=== PATIENT | female | born 1980 | race Hispanic/Latino ===

== ENCOUNTER 2017-01-06 20:58 | Emergency (ER) | payer BC, OTHER ==
[2017-01-06 20:58] VITALS: BMI 25.3
[2017-01-06 21:32] VITALS: BP 133/89; PULSE 64; RESP 18; TEMP 98.2; O2SAT 100
--- NOTE | 2017-01-06 21:54 | C.PDOC ---
History Of Present Illness 36 y/o female presents to ED unable to find string on tampon placed at 230 pm today to remove it. pt denies abdominal pain, denies urinary symptoms. Time Seen by Provider: 01/06/17 21:35 Chief Complaint (Nursing): Female Genitourinary History Per: Patient Onset/Duration Of Symptoms: Hrs (9) Current Symptoms Are (Timing): Still Present Severity: None Pain Scale Rating Of: 0 Abnormal Vaginal Bleeding: No Past Medical History Reviewed: Historical Data, Nursing Documentation, Vital Signs Vital Signs: Last Vital Signs Temp 98.2 F 01/06/17 21:25 Pulse 64 01/06/17 21:25 Resp 18 01/06/17 21:25 BP 133/89 01/06/17 21:25 Pulse Ox 100 01/06/17 21:54 - Medical History PMH: No Chronic Diseases, Migraine Surgical History: No Surg Hx - [facility] Procedures MONITORING NOS (10/05/14) MANUAL ASSIST DELIV NEC (10/05/14) Family History: States: Unknown Family Hx - Social History Hx Tobacco Use: No Hx Alcohol Use: No Hx Substance Use: No - Immunization History Hx Tetanus Toxoid Vaccination: No Hx Influenza Vaccination: No Hx Pneumococcal Vaccination: No Review Of Systems Constitutional: Negative for: Fever, Chills Gastrointestinal: Negative for: Vomiting, Abdominal Pain Genitourinary: Positive for: Vaginal Bleeding (menstruating). Negative for: Dysuria, Frequency Neurological: Negative for: Weakness, Numbness Physical Exam - Physical Exam Appears: Non-toxic, No Acute Distress Gastrointestinal/Abdominal: Bowel Sounds, Soft, No Tenderness Pelvic: Normal External Exam (tampon string seen at introitus), Normal Speculum Exam, Normal Bimanual Exam, Vaginal Bleeding (scant form os), No Cervical Motion Tenderness, No Adnexal Tenderness, No Mass, No Tender Uterus ED Course And Treatment O2 Sat by Pulse Oximetry: 100 Medical Decision Making Medical Decision Making: string of tampon seen at introitus; pt removed tampon herself. normal exam after. 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 Instructions: Vaginal Foreign Body (ED) Forms: General Discharge Instructions - Clinical Impression Clinical Impression: Retained tampon Clinical Impression: (Ruled Out): Foreign body of vagina
== END 2017-01-06 22:12 | disposition home or self-care (01) ==
LOC: C.ER 20:58
DX: T19.2XXA Foreign body in vulva and vagina, initial encounter (principal); X58.XXXA Exposure to other specified factors, initial encounter